=== PATIENT | male | born 1940 | race Caucasian/White ===

== ENCOUNTER 2018-10-21 08:19 | Outpatient (CLI) | payer OTHER | END 2018-10-21 23:59 | disposition home or self-care (01) | LOC: CARD 08:19 | PROVIDERS: ATTEND Psychiatry & Neurology Neurology | DX: G40.909 Epilepsy, unspecified, not intractable, without status epilepticus (principal); M19.90 Unspecified osteoarthritis, unspecified site | CPT/HCPCS: 95819 ==